=== PATIENT | female | born 1975 | race American Indian/Alaskan Native ===

== ENCOUNTER 2017-01-09 16:11 | Emergency (ER) | payer MEDICAID ==
[2017-01-09 16:31] VITALS: BP 142/76
[2017-01-09] MEDS ORDERED: Dexamethasone 4 MG/ML SDV IVPUSH ONE (16:57)
[2017-01-09] MEDS ORDERED: Acetaminophen/HYDROcodone 325-10 MG Tab PO ONE (17:01)
--- NOTE | 2017-01-09 17:08 | EDM.PDOC ---
ED HPI GENERAL MEDICAL PROBLEM - General Chief Complaint: Lower Extremity Injury/Pain Stated Complaint: HAVING HIP PAIN DOWN INTO LEGS Time Seen by Provider: 01/09/17 16:50 Source of Information: Reports: Patient History Limitations: Reports: No Limitations - History of Present Illness INITIAL COMMENTS - FREE TEXT/NARRATIVE: This 41 yo female patient reports to the ED with acute on chronic lower back pain. 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 The patient reports she has been taking Tylenol and ibuprofen with no relief. Onset: Gradual Duration: Constant, Getting Worse Location: Reports: Back, Lower Extremity, Left, Lower Extremity, Right Quality: Reports: Ache, Sharp Severity: Severe Improves with: Reports: Rest Worsens with: Reports: Movement Context: Reports: Activity Associated Symptoms: Reports: Weakness (in lower extremities) Bilateral Hip Pain Score (Numeric/FACES): 10 - Related Data Allergies Allergy/AdvReac Type Severity Reaction Status Date / Time latex Allergy Blisters Verified 01/09/17 16:40 Home Meds: Home Meds Omeprazole [Prilosec] 20 mg PO BID 06/07/15 [History] Cyclobenzaprine [Flexeril] 10 mg PO BEDTIME 01/09/17 [History] Gabapentin [Gabapentin] 600 mg pe PO TID 01/09/17 [History] traMADol [Ultram] 100 mg PO Q8H 01/09/17 [History] Past Medical History HEENT History: Reports: None Cardiovascular History: Reports: None Respiratory History: Reports: None Gastrointestinal History: Reports: GERD Genitourinary History: Reports: Renal Calculus 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: Musculoskeletal History: Reports: Other (See Below) Other Musculoskeletal History: herinated disks Neurological History: Reports: None Psychiatric History: Reports: Addiction Endocrine/Metabolic History: Reports: None Hematologic History: Reports: None Immunologic History: Reports: None Oncologic (Cancer) History: Reports: None Dermatologic History: Reports: None - Infectious Disease History Infectious Disease History: Reports: Chicken Pox - Past Surgical History GI Surgical History: Reports: Cholecystectomy Female Surgical History: Reports: Section, Lithotripsy/ESWL Social & Family History - Family History Family Medical History: Noncontributory - Tobacco Use Smoking Status *Q: Current Every Day Smoker Years of Tobacco use: 20 Packs/Tins Daily: 1 Second Hand Smoke Exposure: No - Caffeine Use Caffeine Use: Reports: Coffee, Soda - Alcohol Use Days Per Week of Alcohol Use: 7 Number of Drinks Per Day: 12 Total Drinks Per Week: 84 - Recreational Drug Use Recreational Drug Use: No Drug Use in Last 12 Months: Yes Recreational Drug Type: Reports: Methamphetamine Recreational Drug Use Frequency: Binges - Living Situation & Occupation Living situation: Reports: with Family Review of Systems - Review of Systems Review Of Systems: ROS reveals no pertinent complaints other than HPI. ED EXAM, GENERAL - Physical Exam Exam: See Below Exam Limited By: No Limitations General Appearance: Alert, WD/WN, Moderate Distress, Obese Eye Exam: Bilateral Eye: EOMI, Normal Inspection, PERRL Ears: Normal External Exam, Normal Canal, Hearing Grossly Normal, Normal TMs Nose: Normal Inspection, Normal Mucosa, No Blood Throat/Mouth: Normal Inspection, Normal Lips, Normal Teeth, Normal Gums, Normal Oropharynx, Normal Voice, No Airway Compromise Head: Atraumatic, Normocephalic Neck: Normal Inspection, Supple, Non-Tender, Full Range of Motion Respiratory/Chest: No Respiratory Distress Cardiovascular: Normal Peripheral Pulses, Regular Rate, Rhythm, No Edema, No Gallop, No JVD, No Murmur, No Rub GI/Abdominal: Normal Bowel Sounds, Soft, Non-Tender, Other (obesity) (Female) Exam: Deferred Rectal (Female) Exam: Deferred Extremities: Normal Inspection, Normal Range of Motion, Non-Tender, No Pedal Edema Neurological: Alert, Oriented, Normal Cognition Psychiatric: Depressed Mood, Flat Affect Skin Exam: Warm, Dry, Intact, Normal Color, No Rash Lymphatic: No Adenopathy Course - Vital Signs Last Recorded V/S: Last Vital Signs Temp 35.6 C 01/09/17 16:30 Pulse 118 H 01/09/17 16:30 Resp 24 H 01/09/17 16:30 BP 142/76 H 01/09/17 16:30 Pulse Ox - Orders/Labs/Meds Meds: Medications Discontinued Medications Generic Name Dose Route Start Last Admin Trade Name Freq PRN Reason Stop Dose Admin Hydrocodone Bitart/Acetaminophen 1 tab 01/09/17 17:01 Shawmut 325-10 Mg PO 01/09/17 17:02 ONETIME ONE Dexamethasone 4 mg 01/09/17 16:57 Dexamethasone IVPUSH 01/09/17 16:58 ONETIME ONE Departure - Departure Time of Disposition: 17:03 Disposition: Home, Self-Care 01 Condition: Fair Clinical Impression: Low back pain with sciatica Qualifiers: Chronicity: acute Back pain laterality: bilateral Sciatica laterality: bilateral sciatica Qualified Code(s): M54.42 - Lumbago with sciatica, left side - Discharge Information Instructions: Back Pain, Adult Forms: ED Department Discharge Care Plan Goals: The patient was advised of the examination results during the visit. The patient was given an injection of Dexamethasone and an oral dose of [place] while in the ED. The patient was discharged with a script for Dexamethaxone (2 mg) # 10 to take 1 by mouth 2 times per day and Shawmut (10/325) #8 to take 1 by mouth every 6 hours as needed for pain. If the patient has any additional symptoms or concerns, the patient should follow-up with her primary care facility or return to the emergency department.
[2017-01-09] MEDS ORDERED: Dexamethasone 4 MG/ML SDV IM ONE (17:25)
== END 2017-01-09 17:41 | disposition home or self-care (01) ==
LOC: DL.ED 16:11
DX: M54.42 Lumbago with sciatica, left side (principal); F17.210 Nicotine dependence, cigarettes, uncomplicated; K21.9 Gastro-esophageal reflux disease without esophagitis; Z87.442 Personal history of urinary calculi; Z98.890 Other specified postprocedural states; Z91.040 Latex allergy status; Z90.49 Acquired absence of other specified parts of digestive tract
CPT/HCPCS: 96372; 99283; A9270; J1100